=== PATIENT | male | born 1955 | race Caucasian/White ===

== ENCOUNTER → 2019-01-29 11:20 | Outpatient (CLI) | payer MEDICARE, OTHER, SELFPAY ==
--- NOTE | 2019-01-29 | DI.RAD.S_ITS ---
PROCEDURE: XR CHEST 2V INDICATIONS: Chronic obstructive pulmonary disease with (acute) exacerbation/COUGH TECHNIQUE: 2 views of the chest were acquired. COMPARISON: None. FINDINGS: Surgical changes and devices: None. Lungs and pleura: Lungs are clear. No pleural effusions or pneumothorax. Mediastinum: Mediastinal contours are normal. Heart size is normal. Bones and chest wall: No suspicious bony abnormalities. Soft tissues appear unremarkable. IMPRESSION: No acute disease Dictated by: Joaquim Gan M.D. on 01/29/2019 at 14:55 Approved by: Joaquim Gan M.D. on 01/29/2019 at 14:55
== END ==
PROVIDERS: PCP Family Medicine; Visit Provider Family Medicine
DX: J44.1 Chronic obstructive pulmonary disease with (acute) exacerbation (principal)
CPT/HCPCS: 71046

== ENCOUNTER → 2019-02-28 08:42 | Outpatient (CLI) | payer MEDICARE, OTHER, SELFPAY ==
--- NOTE | 2019-03-07 17:05 | PM.PFT.1 ---
Pulmonary Function Test Referral & Results Date Patient Seen: 02/28/19 Requesting provider: Jo Guevara Results: The spirometry demonstrates an FVC of 3.47 L which is 72% of predicted. The FEV1 was measured at 2.69 L which is 75% of predicted. The FEV1/FVC ratio was 78 which is 103% of predicted. Following the administration of bronchodilator there was no significant change. Lung volumes show an SVC of 3.34 L which is 69% of predicted. The diffusing capacity was measured at 25.92 which is 76% of predicted. No hemoglobin value was provided, so no correction for potential anemia could be made, if appropriate. The maximum voluntary ventilation was normal Interpretation: This study demonstrates mild obstructive lung disease without evidence of benefit following bronchodilator There is also mild restrictive lung disease present There is also mild reduction in diffusing capacity Altogether this suggest a diagnosis of COPD
== END ==
PROVIDERS: PCP Family Medicine; Visit Provider Family Medicine
DX: J44.1 Chronic obstructive pulmonary disease with (acute) exacerbation (principal)
CPT/HCPCS: 94060; 94726; 94729

== ENCOUNTER → 2019-05-28 08:32 | Outpatient (CLI) | payer MEDICARE, OTHER, SELFPAY ==
--- NOTE | 2019-05-28 | DI.CT.S_ITS ---
PROCEDURE: CT CHEST HIGH RESOLUTION INDICATIONS: Shortness of breath TECHNIQUE: Noncontrast 1.0 and 5.0 mm thick contiguous axial sections from the pulmonary apex to the posterior costophrenic angles, with 7 mm thick coronal and sagittal MIP reformats. 1 mm thick dynamic expiratory images acquired through the upper, mid, and lower lungs. 1.0 mm thick axial sections acquired from the agus to the posterior costophrenic angles in the prone end-inspiration position. For radiation dose reduction, the following was used: automated exposure control, adjustment of mA and/or kV according to patient size. COMPARISON: None. FINDINGS: Image quality: Excellent. Lungs: There are minimal, widely, occasional centrilobular emphysematous changes in the lungs. No significant paraseptal emphysema, bulla formation or fibrosis. 4 mm anterior right upper lobe lung nodule (3/100), and a right middle lobe subpleural nodule (3/175), are both solid. No parenchymal consolidations or opacities. No significant air trapping on dynamic images. Pleura: No pleural effusions or, calcification, plaquing, irregularity, or pneumothorax. Mediastinum: Heart size is normal. Moderate coronary artery calcification. No pericardial effusion. Thoracic aorta and central pulmonary arteries are normal in size. Esophagus is normal in caliber. Bones and chest wall: No suspicious bony lesions. No vertebral body compression fractures. Abdomen: Visualized upper abdominal solid organs and bowel loops appear normal. IMPRESSION: 1. Very minimal emphysematous changes widely scattered. 2. 2 solid right lung nodules for which followup chest CT in 6-12 months is recommended. 3. Moderate coronary artery calcification. Dictated by: Rupa Guzman M.D. on 05/28/2019 at 15:42 Approved by: Rupa Guzman M.D. on 05/28/2019 at 15:54
== END ==
PROVIDERS: PCP Family Medicine; Visit Provider Internal Medicine
DX: R91.8 Other nonspecific abnormal finding of lung field (principal)
CPT/HCPCS: 71250

== ENCOUNTER → 2020-02-26 09:59 | Outpatient (CLI) | payer MEDICARE, OTHER, SELFPAY ==
--- NOTE | 2020-02-26 10:01 | DI.US.S_ITS ---
PROCEDURE: US EXTREMITY NONVASC LOWER RT INDICATIONS: evaluate 4 x 3 cm soft tissue mass anterior right lower leg TECHNIQUE: Real-time scanning was performed of the area of current clinical concern, with image documentation. COMPARISON: None. FINDINGS: There is a complex multiloculated predominantly fluid filled structure measuring up to 3.3 x 3.5 x 4.6 cm, medial proximal tibia on the right. IMPRESSION: Etiology of the complex cystic masslike structure involving the medial proximal tibia region is uncertain, and this measures up to 4.6 cm. The structure is nonspecific in appearance, could represent sequela of a unusually prominent synovial protrusion, but also has the potential of representing a cystic neoplasm. For this reason consideration of obtaining contrast enhanced MR scanning is recommended. Dictated by: Drew Field M.D. on 02/26/2020 at 10:32 Approved by: Drew Field M.D. on 02/26/2020 at 10:35
== END ==
PROVIDERS: PCP Family Medicine; Referring Provider Family Medicine; Visit Provider Family Medicine
DX: R22.41 Localized swelling, mass and lump, right lower limb (principal)
CPT/HCPCS: 76882

== ENCOUNTER → 2020-03-10 09:06 | Outpatient (CLI) | payer MEDICARE, OTHER, SELFPAY ==
--- NOTE | 2020-03-10 09:09 | DI.MRI.S_ITS ---
PROCEDURE: MR LOWER LEG RT WO/W CON INDICATIONS: Further evaluation of R lower leg mass TECHNIQUE: Noncontrast coronal T1 spin echo and STIR, sagittal T1 spin echo with fat saturation and STIR, axial T1 spin echo and T2 fast spin echo with fat saturation. After the administration of contrast, axial/sagittal/coronal T1 spin echo with fat saturation through the right lower leg. COMPARISON: None. FINDINGS: Image quality: Excellent. Bones: There is no marrow edema. No fracture or dislocation. Osteoarthritic changes in right knee and ankle joints are seen. The overlying cortex appears intact. No abnormal intraosseous enhancement. Soft tissues: 2.7 x 3.4 x 4.9 cm lobulated T2 hyperintense and T1 hypointense structure adjacent to medial cortex of proximal tibial shaft and is lateral to the medial head of gastrocnemius muscle is seen with a thin internal septation. After IV contrast infusion, no enhancement is noted within this structure. There is also a popliteal cyst seen measures 2.2 x 1.3 x 3.1 cm in size with thin internal septation and show no contrast-enhancement. A bilobed lobulated and septated cystic structure is also noted anterior and lateral to the distal tibiofibular syndesmosis measures 2.4 x 0.9 x 1.9 cm in size and show no contrast-enhancement. The scanned muscles demonstrate normal overall bulk and internal signal. Subcutaneous tissues appear normal as well. No abnormal soft tissue enhancement. IMPRESSION: 1. 2.7 x 3.4 x 4.9 cm cystic structure medial to proximal tibial shaft and deep to the medial head of gastrocnemius muscle most consistent with a ganglion cyst. No internal enhancement is seen. Thin internal septation is noted. 2. Suggestion of a 2.4 x 0.9 x 1.9 cm ganglion cyst anterolateral to the distal tibiofibular syndesmosis. 3. 2.2 x 1.3 x 3.1 cm popliteal cyst. 4. No enhancing soft tissue mass. No gross abnormality is seen in muscles and tendons of lower leg. 5. Osteoarthritic changes in right knee and ankle joints. No abnormal intraosseous enhancement. Dictated by: Gene Yoon M.D. on 03/10/2020 at 13:03 Approved by: Gene Yoon M.D. on 03/10/2020 at 13:09
== END ==
PROVIDERS: PCP Family Medicine; Referring Provider Family Medicine; Visit Provider Family Medicine
DX: R22.41 Localized swelling, mass and lump, right lower limb (principal); M71.21 Synovial cyst of popliteal space [Baker], right knee
CPT/HCPCS: 73720

== ENCOUNTER → 2020-09-16 07:00 | Outpatient (CLI) | payer MEDICARE, OTHER, SELFPAY ==
[2020-09-16 08:00] LABS: Add Manual Diff / Slide Review NO; Basophils Absolute Auto 0 /uL (0-100); Basophils Percent Auto 0.8 % (0-2); Eosinophils Absolute Auto 100 /uL (0-450); Eosinophils Percent Auto 2.1 % (2-4); Hematocrit 44.7 % (41-53); Hemoglobin 15.8 g/dL (13.5-17.5); Lymphocytes Absolute Auto 1100 /uL (1100-4500); Lymphocytes Percent Auto 21.9 % (25-40); Mean Corpuscular HGB Conc 35.2 % (30-36); Mean Corpuscular Hemoglobin 32.3 PG (26-34); Mean Corpuscular Volume 91.8 fL (80-100); Monocytes Absolute Auto 300 /uL (0-900); Monocytes Percent Auto 6.3 % (3-14); Neutrophils Absolute Auto 3500 /uL (1500-7000); Neutrophils Percent Auto 68.9 % (50-75); Platelet Count 137 X10^3/uL (150-400); Red Blood Cell Count 4.87 X10^6/uL (4.5-5.9); Red Cell Distribution Width 13.7 % (11.6-14.8)
[2020-09-16 08:11] LABS: Alanine Aminotransferase 32 IU/L (<50); Albumin 4.4 g/dL (3.5-5.0); Albumin Globulin Ratio 1.5 (1.0-2.8); Alkaline Phosphatase 110 U/L (38-126); Aspartate Aminotransferase 25 IU/L (17-59); BUN Creatinine Ratio 15.8 (6-22); Blood Urea Nitrogen 12 mg/dL (9-20); Calcium 9.2 mg/dL (8.4-10.2); Carbon Dioxide 28 mmol/L (22-32); Chloride 103 mmol/L (98-107); Cholesterol 138 mg/dL (140-199); Estimated Glomerular Filt Rate > 60.0 mL/min (>60); Globulin 2.9 g/dL (1.7-4.1); Glucose 185 mg/dL (80-110); HDL Cholesterol 38 mg/dL (40-60); HEMOLYSIS < 15 (0-50); LDL Cholesterol Calculated 50 mg/dL (<100); Potassium 4.4 mmol/L (3.4-5.1); Sodium 136 mmol/L (137-145); Total Protein 7.3 g/dL (6.3-8.2); Triglycerides 251 mg/dL (35-150)
[2020-09-16 08:22] LABS: Appearance Urine UA CLEAR; Bilirubin Urine UA NEGATIVE (NEGATIVE); Color Urine UA YELLOW; Glucose Urine UA TRACE g/dL (Negative); Ketones Urine UA NEGATIVE (NEGATIVE); Leukocyte Esterase Urine UA NEGATIVE (NEGATIVE); Nitrite Urine UA NEGATIVE (Negative); Occult Blood Urine UA TRACE-INTACT (Negative); Protein Urine UA NEGATIVE (Negative); Specific Gravity Urine UA 1.015 (1.000-1.035); Urobilinogen Urine UA 0.2 E.U./dL (0.2); pH Urine UA 6.5 (4.5-8.0)
[2020-09-16 08:38] LABS: Prostate Specific Antigen Scrn 0.266 ng/mL (0.1-4.0)
== END ==
PROVIDERS: PCP Family Medicine; Referring Provider Family Medicine; Visit Provider Family Medicine
DX: E78.5 Hyperlipidemia, unspecified (principal); R73.9 Hyperglycemia, unspecified; I10 Essential (primary) hypertension; Z12.5 Encounter for screening for malignant neoplasm of prostate
CPT/HCPCS: 36415; 80053; 80061; 81003; 83036; 85025; G0103

== ENCOUNTER → 2020-12-16 07:39 | Outpatient (CLI) | payer MEDICARE, OTHER, SELFPAY ==
[2020-12-16 08:12] LABS: Hemoglobin A1C% w Est Avg Glu 4.5 % (4.0-6.0)
[2020-12-16 08:49] LABS: Alanine Aminotransferase 33 IU/L (<50); Albumin 4.8 g/dL (3.5-5.0); Albumin Globulin Ratio 1.8 (1.0-2.8); Alkaline Phosphatase 112 U/L (38-126); Aspartate Aminotransferase 31 IU/L (17-59); BUN Creatinine Ratio 15.2 (6-22); Blood Urea Nitrogen 12 mg/dL (9-20); Calcium 10.1 mg/dL (8.4-10.2); Carbon Dioxide 26 mmol/L (22-32); Chloride 101 mmol/L (98-107); Estimated Glomerular Filt Rate > 60.0 mL/min (>60); Globulin 2.6 g/dL (1.7-4.1); Glucose 93 mg/dL (80-110); HEMOLYSIS 15 (0-50); Potassium 4.5 mmol/L (3.4-5.1); Sodium 136 mmol/L (137-145); Total Protein 7.4 g/dL (6.3-8.2)
== END ==
PROVIDERS: PCP Family Medicine; Referring Provider Family Medicine; Visit Provider Family Medicine
DX: E11.9 Type 2 diabetes mellitus without complications (principal)
CPT/HCPCS: 36415; 80053; 83036

== ENCOUNTER → 2021-06-10 07:03 | Outpatient (CLI) | payer MEDICARE, OTHER, SELFPAY ==
[2021-06-10 08:32] LABS: Hemoglobin A1C% w Est Avg Glu 4.5 % (4.0-6.0)
[2021-06-10 08:39] LABS: Creatinine Urine Random 86.4 mg/dL
[2021-06-10 08:43] LABS: Microalbumi Creatinin Ratio Ur 8.1 ug/mg CR (<30); Microalbumin Urine Random 0.7 mg/dL (0-1.6)
[2021-06-10 08:48] LABS: Alanine Aminotransferase 24 IU/L (<50); Albumin 4.3 g/dL (3.5-5.0); Albumin Globulin Ratio 1.7 (1.0-2.8); Alkaline Phosphatase 105 U/L (38-126); Aspartate Aminotransferase 26 IU/L (17-59); BUN Creatinine Ratio 18.9 (6-22); Blood Urea Nitrogen 14 mg/dL (9-20); Calcium 9.7 mg/dL (8.4-10.2); Carbon Dioxide 25 mmol/L (22-32); Chloride 103 mmol/L (98-107); Cholesterol 134 mg/dL (140-199); Estimated Glomerular Filt Rate > 60.0 mL/min (>60); Globulin 2.5 g/dL (1.7-4.1); Glucose 86 mg/dL (80-110); HDL Cholesterol 54 mg/dL (40-60); HEMOLYSIS < 15 (0-50); LDL Cholesterol Calculated 65 mg/dL (<100); Potassium 4.3 mmol/L (3.4-5.1); Sodium 137 mmol/L (137-145); Total Protein 6.8 g/dL (6.3-8.2); Triglycerides 73 mg/dL (35-150)
== END ==
PROVIDERS: PCP Family Medicine; Referring Provider Family Medicine; Visit Provider Family Medicine
DX: E11.9 Type 2 diabetes mellitus without complications (principal); I10 Essential (primary) hypertension; E78.1 Pure hyperglyceridemia; E78.2 Mixed hyperlipidemia
CPT/HCPCS: 36415; 80053; 80061; 82043; 82570; 83036